=== PATIENT | female | born 1955 | race Caucasian/White ===

== ENCOUNTER 2017-02-04 12:16 | Observation (INO) | payer OTHER ==
--- NOTE | ~2017-02-04 | HP ---
History And Physical [facility] [id number] [place]. [address] NAME: MIKAL LIRA : 51 STATUS : ADM Melchor PAT#: [id number] AGE: 61 ADM/REG DATE : 02/04/17 MR#: [id number] REPORT SERV DATE: 02/04/17 DICTATED BY: WHITNEY ESPARZA DATE: 02/04/17 REPORT STATUS : Draft TRANSCRIBED BY: MODL DATE: 02/04/17 DATE OF ADMISSION: 02/04/2017 CHIEF COMPLAINT: Chest pain. HISTORY OF PRESENT ILLNESS: This is a 61-year-old female who reports a two-day history of chest pain. She states it has been substernal with radiation to her left neck and left arm, intermittent over the last couple of days. She actually went to [facility] Emergency Department yesterday afternoon, and they checked EKG and troponins x2 and then sent her home and they did not have the ability to do a stress test that afternoon because she had some coffee that morning. Today, she was sitting on the couch and got up and walked to the front [place], she states perhaps 10 feet when she developed substernal chest pain, 10/10 in severity with radiation to the neck and left shoulder. The pain lasted for approximately three to four minute. She came to our emergency department later this morning and has had no further re-occurrence of the chest pains. She does state that the chest pain seemed to be worse over the last couple days when she tries to do things. She denies any significant shortness of breath. The patient states history of what sounds to be a Non-ST elevation SD in 2006 with a cardiac catheterization but no reported stents. I cannot find any documentation of this from [facility] records. The patient has a history of Erickson esophagus and has had esophageal dilatation in 2013. She is on chronic pain medication and under pain management with Dr. Ley in the outpatient setting. She has received some IV Ativan in the emergency department for anxiety. Denies any recent fever, cough, or chills. Denies significant orthopnea, PND, lower extremity edema, or symptomatic palpitations. MEDICAL HISTORY: 1. Anxiety and depression. 2. Hypertension. 3. Hyperlipidemia. 4. GERD. 5. Irritable bowel syndrome. 6. Erickson esophagus. 7. History of esophageal dilatation. 8. Chronic pain related to spinal stenosis and multiple back surgeries. 9. History of Inman's palsy, resolved. 10.TIA in 2002. 11.Bilateral lower extremity neuropathy. 12.History right DVT in 1996. 13.Obstructive sleep apnea, resolved with weight loss. SURGICAL HISTORY: 1. Hysterectomy. 2. Breast reduction in 1999. 3. Right total knee replacement. 4. Multiple back fusions. History And Physical [address] [address] NAME: MIKAL LIRA : 51 STATUS : ADM Melchor PAT#: [id number] AGE: 61 ADM/REG DATE : 02/04/17 MR#: [id number] REPORT SERV DATE: 02/04/17 DICTATED BY: WHITNEY ESPARZA DATE: 02/04/17 REPORT STATUS : Draft TRANSCRIBED BY: JAVI DATE: 02/04/17 5. Nerve stimulator which is currently not functioning. 6. Esophageal dilatation. 7. Cholecystectomy. HOME MEDICATIONS: Gabapentin 600 b.i.d., Lasix 80 mg b.i.d., simvastatin 10 at bedtime, morphine sustained release 60 mg every eight hours, oxycodone 15 mg every eight hours, Flexeril 10 mg b.i.d., omeprazole 20 b.i.d., meloxicam 15 daily, aspirin 81, p.r.n., Wellbutrin SR 150 daily, trazodone 100 to 200 mg at bedtime, potassium chloride 20 mEq b.i.d. ALLERGIES: ALLERGY TO METALS CAUSES RASH AND BLISTERS. WINE AND ALCOHOL CAUSE ANAPHYLACTIC REACTION AND NSAIDS CAUSE HISTORY OF BLEEDING ULCERS. ASPIRIN CAUSES STOMACH PAIN. SOCIAL HISTORY: The patient is , at bedside. She has a total of nine children. She remains active with housework at home. Denies smoking or alcohol use. Denies illicit drug use. FAMILY HISTORY: Negative for premature cardiovascular disease among her first-degree relatives. Father had an SD at age 71. REVIEW OF SYSTEMS: Negative except as indicated above. PHYSICAL EXAMINATION: GENERAL: Well developed, well nourished, in no acute distress. VITAL SIGNS: Blood pressure 129/86, heart rate 88, temperature 97.8, pulse oximetry 95% room air, respirations 18. HEENT: Anicteric. Normal EOM. Head normocephalic. PERRLA, no xanthelasma. NECK: Supple. No JVD. Carotids normal without bruits. LUNGS: Clear to auscultation with diminished breath sounds at the bases. Normal respiratory effort. No crackles. CARDIOVASCULAR: S1, S2. Regular rate and rhythm. No murmurs, rubs, or gallops appreciated. There is some chest wall tenderness to palpation to the mid sternum. ABDOMEN: Normal bowel sounds. Soft and nontender to palpation. No masses or organomegaly. EXTREMITIES: No peripheral edema. DP/PT and radial pulses palpable bilaterally. No clubbing or cyanosis. SKIN: Warm and dry. Normal turgor. No pallor or cyanosis. MUSCULOSKELETAL: Moving all extremities x4. Normal muscle strength. NEURO/PSYCH: Alert and oriented with appropriate affect. LABORATORY DATA: Sodium 142, potassium 3.3, BUN 12, creatinine 1.0. White blood count 4.3, hemoglobin 13.9, hematocrit 40.2. Troponin less than 0.02. Chest x-ray shows no acute cardiopulmonary processes. EKG interpreted by myself indicates normal sinus rhythm with borderline LVH. No ischemia noted. ASSESSMENT AND PLAN: 1. Midsternal chest pain in this 61-year-old female with cardiovascular risk factors of History And Physical [address] [address] NAME: MIKAL LIRA : 51 STATUS : ADM Melchor PAT#: [id number] AGE: 61 ADM/REG DATE : 02/04/17 MR#: [id number] REPORT SERV DATE: 02/04/17 DICTATED BY: WHITNEY ESPARZA DATE: 02/04/17 REPORT STATUS : Draft TRANSCRIBED BY: JAVI DATE: 02/04/17 hyperlipidemia, hypertension, prior history of transient ischemic attack and deep venous thrombosis. Her initial presentation is negative for acute coronary syndrome. We will admit her to the chest pain observation unit and plan to check another troponin and EKG. If these remain unchanged, plan to proceed with a nuclear stress test in the morning. If stress testing is low risk, will discharge her home to follow up with her primary care physician. Costochondritis versus some radiculopathy from her chronic back pain versus esophagitis as possible etiologies. 2. Gastroesophageal reflux disease with history of Erickson esophagus. The patient had esophageal dilatation in 2013. Consider GI workup if cardiac workup is negative. 3. Chronic pain on chronic narcotics. These have been confirmed with [place] Controlled Substance Medical Database. We will continue. 4. Mixed hyperlipidemia. On simvastatin. We will continue. DBT/MODL Whitney Esparza NP / [id number] CC: SONIYA Roque M.D.
[~2017-02-04 12:16] MED LIST: ALEVE220 MG PO; B121000P IM; DURA100 TOP; EVISTA60 PO; FLEX PO; GLUCOPHXR PO; GLUCPH PO; KADIAN60 MG PO; L80 PO; LIDODERM T; LIPITOR10 PO; LIPITOR20 PO; METHOC500B PO; NEUR600 PO; NEXIUM40 PO; PCET PO; PERCOCET1 TA2 PO; PERCOCET1 TA4 PO; POTASSIUM; PRILOSEC40 MG PO; PROZAC PO; PROZAC40 MG PO; ROXICODONE15 MG PO; SPIRO50 PO; VITAMIN B SC; ZOCOR10 PO
[2017-02-04 13:12] LABS: BASOPHILS 0.2 %; BASOPHILS ABSOLUTE 0.01 10/3/uL (0.0-0.16); EOSINOPHILS 1.9 %; EOSINOPHILS ABSOLUTE 0.08 10/3/uL (0.0-0.53); HEMATOCRIT 40.2 % (36.0-48.0); HEMOGLOBIN 13.9 g/dL (12.0-16.0); IMMATURE GRANULOCYTES 0.2 %; IMMATURE GRANULOCYTES ABSOLUTE 0.01 10/3/uL (0.0-0.11); LYMPHOCYTES 30.2 %; LYMPHOCYTES ABSOLUTE 1.29 10/3/uL (0.67-4.30); MANUAL DIFF NO %; MEAN CORPUS HGB CONC 34.6 g/dL (32.0-36.0); MEAN CORPUSCULAR HEMOGLOB 31.6 pg (26.0-34.0); MEAN CORPUSCULAR VOLUME 91.4 fL (80-100); MEAN PLATELET VOLUME 9.3 fL (9.2-13.0); MONOCYTES 9.6 %; MONOCYTES ABSOLUTE 0.41 10/3/uL (0.21-1.20); NEUTROPHILS 57.9 %; NEUTROPHILS ABSOLUTE 2.47 10/3/uL (2.02-8.40); PLATELET COUNT 191 10/3/uL (150-400); RBC DISTRIBUTION WIDTH 12.6 % (12.0-16.0); WHITE BLOOD CELLS 4.3 10/3/uL (4.5-10.5)
[2017-02-04 13:21] LABS: PARTIAL THROMBO TIME 27.3 SEC (22.5-37.2); PROTIME (NOT ORD) 13.4 SEC (12.0-14.5)
[2017-02-04 13:29] LABS: BUN (BLOOD UREA NITROGEN) 12 MG/DL (6-23); CALCIUM, SERUM 8.5 MG/DL (8.5-10.4); CHEST PAIN PROFILE TAT 0 Hrs 21 Mins; CHLORIDE, SERUM 103 MMOL/L (96-112); CO2 (CARBON DIOXIDE) 36 MMOL/L (24-34); CREATININE 1.03 MG/DL (0.55-1.02); GFR AFRICAN AMERICAN 67 ML/MIN (>=60); GFR NON AFRICAN AMERICAN 58 ML/MIN (>=60); GLUCOSE, SERUM 96 MG/DL (60-99); POTASSIUM, SERUM 3.3 MMOL/L (3.5-5.3); SODIUM, SERUM 142 MMOL/L (135-148); TROPONIN I <0.02 NG/ML (<0.05)
[2017-02-04] MEDS ORDERED: PRILO PO (15:03)
[2017-02-04] MEDS ORDERED: MOBIC15 MG PO (15:04)
[2017-02-04] MEDS ORDERED: ASAB PO (15:08)
[2017-02-04] MEDS ORDERED: WELLSR150 PO (15:17)
[2017-02-04] MEDS ORDERED: TRAZ100 PO (15:18)
[2017-02-04] MEDS ORDERED: KDUR20 PO (15:19)
[2017-02-04] MEDS ORDERED: MSCONTIN PO (18:23)
[2017-02-04 20:17] LABS: TROPONIN I <0.02 NG/ML (<0.05)
[2017-02-04 20:57] LABS: POTASSIUM, SERUM 3.1 MMOL/L (3.5-5.3)
[2017-02-05 11:15] LABS: BUN (BLOOD UREA NITROGEN) 14 MG/DL (6-23); CALCIUM, SERUM 8.9 MG/DL (8.5-10.4); CHLORIDE, SERUM 102 MMOL/L (96-112); CO2 (CARBON DIOXIDE) 38 MMOL/L (24-34); CREATININE 1.07 MG/DL (0.55-1.02); GFR AFRICAN AMERICAN 64 ML/MIN (>=60); GFR NON AFRICAN AMERICAN 55 ML/MIN (>=60); GLUCOSE, SERUM 106 MG/DL (60-99); SODIUM, SERUM 141 MMOL/L (135-148)
== END 2017-02-05 12:50 | disposition home or self-care (01) ==
LOC: ER 12:16 → CDU1 15:19 → CDU2 15:27
PROVIDERS: Emergency Medicine; Nurse Practitioner
DX: R07.89 Other chest pain (principal); I25.2 Old myocardial infarction; F41.9 Anxiety disorder, unspecified; F32.9 Major depressive disorder, single episode, unspecified; I10 Essential (primary) hypertension; E78.2 Mixed hyperlipidemia; K21.9 Gastro-esophageal reflux disease without esophagitis; Z86.73 Personal history of transient ischemic attack (TIA), and cerebral infarction without residual deficits; Z86.718 Personal history of other venous thrombosis and embolism; G47.33 Obstructive sleep apnea (adult) (pediatric); Z90.710 Acquired absence of both cervix and uterus; Z90.49 Acquired absence of other specified parts of digestive tract; Z98.890 Other specified postprocedural states; Z79.82 Long term (current) use of aspirin; Z79.899 Other long term (current) drug therapy; Z88.8 Allergy status to other drugs, medicaments and biological substances
CPT/HCPCS: 71010; 78452; 80048; 83735; 84132; 84484; 85025; 85610; 85730; 93005; 93017; 96374; 96375; 99285; A9270-GY; A9502; G0378; J2405